=== PATIENT | male | born 1985 | race Caucasian/White ===

== ENCOUNTER 2016-06-04 08:50 | Emergency (ER) | payer SELFPAY ==
[2016-06-04] MEDS ORDERED: OPTIRAY 350 100 ML VIAL HMH IV ONE (08:51)
[2016-06-04] MEDS ORDERED: ONDANSETRON 4 MG VIAL ONE (11:40)
[2016-06-04] MEDS ORDERED: METHYLPRED SOD SUCC 125 MG/2 ML VIAL ONE (11:40)
[2016-06-04] MEDS ORDERED: DILAUDID 1 MG/ML AMP ONE (11:41)
[2016-06-04] MEDS ORDERED: ED CLINDAMYCIN PREMIX 50 ML IV ONE (11:41)
== END 2016-06-04 13:46 | disposition home or self-care (01) ==
LOC: ER 08:50
CPT/HCPCS: 70491; 96365; 96375